=== PATIENT | male | born 1975 | race Caucasian/White ===

== ENCOUNTER → 2017-07-01 | Outpatient (CLI) | payer BC | LOC: WCC 10:28 | PROVIDERS: ATTEND Internal Medicine Infectious Disease | DX: T88.9XXA Complication of surgical and medical care, unspecified, initial encounter (principal); T81.89XA Other complications of procedures, not elsewhere classified, initial encounter ==

== ENCOUNTER → 2017-07-05 | Outpatient (CLI) | payer BC | LOC: WCC 08:33 | PROVIDERS: ATTEND Internal Medicine Infectious Disease | DX: T81.89XA Other complications of procedures, not elsewhere classified, initial encounter (principal); T88.9XXA Complication of surgical and medical care, unspecified, initial encounter ==

== ENCOUNTER → 2017-07-08 | Outpatient (CLI) | payer BC ==
[~2017-07-08] MED LIST: LIDOCAINE VISC 2% SOLN 15 ML UDC ONE
== END ==
LOC: WCC 09:29
PROVIDERS: ATTEND Internal Medicine Infectious Disease
DX: T88.9XXA Complication of surgical and medical care, unspecified, initial encounter (principal); T81.89XA Other complications of procedures, not elsewhere classified, initial encounter

== ENCOUNTER → 2017-07-12 | Outpatient (CLI) | payer BC | LOC: WCC 10:00 | PROVIDERS: ATTEND Internal Medicine Infectious Disease | DX: T81.89XA Other complications of procedures, not elsewhere classified, initial encounter (principal); T88.9XXA Complication of surgical and medical care, unspecified, initial encounter ==

== ENCOUNTER → 2017-07-15 | Outpatient (CLI) | payer BC | LOC: WCC 10:01 | PROVIDERS: ATTEND Internal Medicine Infectious Disease | DX: T81.89XA Other complications of procedures, not elsewhere classified, initial encounter (principal); T88.9XXA Complication of surgical and medical care, unspecified, initial encounter ==

== ENCOUNTER → 2017-07-19 | Outpatient (CLI) | payer BC | LOC: WCC 08:34 | PROVIDERS: ATTEND Internal Medicine Infectious Disease | DX: T88.9XXA Complication of surgical and medical care, unspecified, initial encounter (principal); T81.89XA Other complications of procedures, not elsewhere classified, initial encounter ==

== ENCOUNTER → 2017-07-22 | Outpatient (CLI) | payer BC | LOC: WCC 09:40 | PROVIDERS: ATTEND Internal Medicine Infectious Disease | DX: T81.89XA Other complications of procedures, not elsewhere classified, initial encounter (principal); T88.9XXA Complication of surgical and medical care, unspecified, initial encounter ==

== ENCOUNTER → 2017-07-25 | Outpatient (CLI) | payer BC | LOC: WCC 08:07 | PROVIDERS: ATTEND Internal Medicine Infectious Disease | DX: T81.89XA Other complications of procedures, not elsewhere classified, initial encounter (principal); T88.9XXA Complication of surgical and medical care, unspecified, initial encounter ==

== ENCOUNTER → 2017-07-28 | Outpatient (CLI) | payer BC | LOC: WCC 07:29 | PROVIDERS: ATTEND Internal Medicine Infectious Disease | DX: T81.89XA Other complications of procedures, not elsewhere classified, initial encounter (principal); T88.9XXA Complication of surgical and medical care, unspecified, initial encounter ==

== ENCOUNTER → 2017-08-05 | Outpatient (CLI) | payer BC | LOC: WCC 09:37 | PROVIDERS: ATTEND Internal Medicine Infectious Disease | DX: T81.89XA Other complications of procedures, not elsewhere classified, initial encounter (principal); Y83.8 Other surgical procedures as the cause of abnormal reaction of the patient, or of later complication, without mention of misadventure at the time of the procedure ==

== ENCOUNTER → 2017-08-12 | Outpatient (CLI) | payer BC | LOC: WCC 09:41 | PROVIDERS: ATTEND Nurse Practitioner Family | DX: T81.89XA Other complications of procedures, not elsewhere classified, initial encounter (principal); Y83.8 Other surgical procedures as the cause of abnormal reaction of the patient, or of later complication, without mention of misadventure at the time of the procedure ==

== ENCOUNTER → 2017-08-26 | Outpatient (CLI) | payer BC | LOC: WCC 10:46 | PROVIDERS: ATTEND Internal Medicine Infectious Disease | DX: T81.89XA Other complications of procedures, not elsewhere classified, initial encounter (principal); Y83.8 Other surgical procedures as the cause of abnormal reaction of the patient, or of later complication, without mention of misadventure at the time of the procedure ==